=== PATIENT | male | born 1985 | race Caucasian/White ===

== ENCOUNTER 2016-12-12 03:31 | Emergency (ER) | payer SELFPAY ==
[~2016-12-12] VITALS: Ht 175.3 cm; Wt 72.6 kg
--- NOTE | 2016-12-12 03:50 | NUR ---
CALLED PT IN [place], NO REPONSE
--- NOTE | 2016-12-12 04:00 | NUR ---
CALLED PT IN [place], NO REPONSE
--- NOTE | 2016-12-12 04:35 | NUR ---
CALLED PT IN [place], NO REPONSE
[2016-12-12 04:56] VITALS: BP 119/76
[2016-12-12 05:29] LABS: APPEARANCE,URINE CLOUDY (CLEAR); BILIRUBIN,URINE 1+ (NEGATIVE); BLOOD, URINE 1+ Ery/uL (NEGATIVE); COLOR,URINE YELLOW (YELLOW); KETONES,URINE NEGATIVE (NEGATIVE); LEUKOCYTE ESTERASE ,URINE 2+ (NEGATIVE); NITRITE, URINE NEGATIVE (NEGATIVE); PH,URINE 7.5 (5.0-8.0); PROTEIN,URINE 2+ mg/dl (NEGATIVE); UGLUCOSE NEGATIVE (NEGATIVE); UROBILINOGEN,URINE >=8.0 EU/dL (0.2)
[2016-12-12] MEDS ORDERED: METRONIDAZOLE 500 MG TABLET PO ONE (05:30)
[2016-12-12] MEDS ORDERED: AZITHROMYCIN 250 MG TABLET PO ONE (05:30)
[2016-12-12] MEDS ORDERED: CEFTRIAXONE 500 MG VIAL IM ONE (05:30)
[2016-12-12 05:39] LABS: BACTERIA,URINE 2+ /HPF (None Seen); SQUAMOUS EPITHELIAL CELL,UR Few /HPF (None Seen); WBC,URINE 81-100 /HPF (0-3)
[2016-12-12] MEDS ORDERED: CEFTRIAXONE 500 MG VIAL ONE (05:40)
[2016-12-12] MEDS ORDERED: AZITHROMYCIN 250 MG TABLET ONE (05:40)
[2016-12-12] MEDS ORDERED: LIDOCAINE /MPF 1% VIAL 5 ML VIAL ONE (05:41)
[2016-12-12] MEDS ORDERED: METRONIDAZOLE 250 MG TABLET ONE (05:53)
[2016-12-12] MEDS ORDERED: METRONIDAZOLE 500 MG TABLET ONE (05:57)
--- NOTE | 2016-12-12 06:06 | NUR ---
ONLY HAD 1500MG OF FLAGLY IN THE ER, GOT 500MG FROM HOUSE SUP
--- NOTE | 2016-12-12 07:30 | NUR ---
Patient discharged to home in stable condition. Written and verbal after care instructions given. Patient verbalizes understanding of instruction.
== END 2016-12-12 07:31 | disposition home or self-care (01) ==
LOC: ER 03:31
DX: N39.0 Urinary tract infection, site not specified (principal); N45.1 Epididymitis; Z20.2 Contact with and (suspected) exposure to infections with a predominantly sexual mode of transmission
CPT/HCPCS: 76870; 81001; 87086; 87491; 87591; 96372; 99285; A4606; J0696; J3490; Z7610; 81000-TC

== ENCOUNTER 2017-03-23 10:50 | Emergency (ER) | payer SELFPAY ==
[~2017-03-23] VITALS: Ht 175.3 cm; Wt 74.8 kg
[2017-03-23 10:50] VITALS: BP 126/80
--- NOTE | 2017-03-23 13:53 | NUR ---
Patient discharged to home in stable condition. Written and verbal after care instructions given. Patient verbalizes understanding of instruction. Ambulates with stable gait.
== END 2017-03-23 13:55 | disposition home or self-care (01) ==
LOC: ER 10:51
DX: F11.10 Opioid abuse, uncomplicated (principal)
CPT/HCPCS: A4606; Z7610